=== PATIENT | female | born 1965 | race Caucasian/White ===

== ENCOUNTER → 2022-05-24 | Outpatient (CLI) | payer OTHER ==
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
== END | disposition home or self-care (01) ==
LOC: RADMRIMAIN 20:30
PROVIDERS: ATTEND Nurse Practitioner Family
DX: M25.512 Pain in left shoulder (principal); M75.42 Impingement syndrome of left shoulder; V89.2XXA Person injured in unspecified motor-vehicle accident, traffic, initial encounter

== ENCOUNTER → 2022-07-26 | Outpatient (CLI) | payer BC, OTHER ==
--- NOTE | 2022-07-26 14:33 | XR ---
EXAMINATION TYPE: XR elbow complete RT DATE OF EXAM: 07/26/2022 COMPARISON: NONE HISTORY: Pain FINDINGS: Three views of the elbow demonstrate no pathologic joint effusion. The osseous structures are intact . There is no acute fracture or dislocation. IMPRESSION: 1. No acute fracture or dislocation. If symptoms persist follow-up study in 7 to 10 days could be ob tained.
--- NOTE | 2022-07-26 14:34 | XR ---
EXAMINATION TYPE: XR knee 4V RT DATE OF EXAM: 07/26/2022 COMPARISON: NONE HISTORY: Pain TECHNIQUE: Three views are submitted. FINDINGS: Joint spaces are preserved. Osseous structures are intact. No acute fracture seen. Small amount of fluid in the suprapatellar bursa. IMPRESSION: 1. No acute fracture or dislocation. There is a small amount of fluid in the suprapatellar bursa. If concern for internal derangement of the knee correlate with MRI.
--- NOTE | 2022-07-26 14:37 | XR ---
EXAMINATION TYPE: XR wrist complete RT DATE OF EXAM: 07/26/2022 COMPARISON: NONE HISTORY: Pain TECHNIQUE: Four views submitted. FINDINGS: The osseous structures are intact. The joint spaces are preserved and there is no acute fracture or dislocation. IMPRESSION: 1. No definite acute fracture or dislocation if symptoms persist, follow-up study in 7 to 10 days wo uld be suggested
== END | disposition home or self-care (01) ==
LOC: RADXRMAIN 13:10
PROVIDERS: ATTEND Nurse Practitioner Family
DX: M25.531 Pain in right wrist (principal); M25.561 Pain in right knee; M25.521 Pain in right elbow; W19.XXXA Unspecified fall, initial encounter

== ENCOUNTER → 2022-08-07 | Outpatient (CLI) | payer OTHER ==
--- NOTE | 2022-08-07 14:49 | XR ---
EXAMINATION TYPE: XR elbow complete LT DATE OF EXAM: 08/07/2022 COMPARISON: NONE HISTORY: Pain FINDINGS: Three views of the elbow demonstrate no pathologic joint effusion. The osseous structures are intact . There is no acute fracture or dislocation. IMPRESSION: 1. No acute fracture or dislocation. If symptoms persist follow-up study in 7 to 10 days could be ob tained.
--- NOTE | 2022-08-07 14:51 | XR ---
EXAMINATION TYPE: XR hand complete LT DATE OF EXAM: 08/07/2022 COMPARISON: NONE HISTORY: Pain TECHNIQUE: Three views are submitted. FINDINGS: The osseous structures are intact. The joint spaces are preserved and there is no acute fracture or dislocation. IMPRESSION: 1. No definite acute fracture or dislocation if symptoms persist, follow-up study in 7 to 10 days wo uld be suggested
== END | disposition home or self-care (01) ==
LOC: RADXRMAIN 13:56
PROVIDERS: ATTEND Family Medicine
DX: M79.642 Pain in left hand (principal); M25.522 Pain in left elbow

== ENCOUNTER → 2022-08-17 | Outpatient (CLI) | payer OTHER ==
[2022-08-17 15:37] LABS: Basophils % (A) 1.6 %; Eosinophils # (A) 0.08 X 10*3/uL (0.04-0.35); Eosinophils % (A) 1.3 %; HCT 41.4 % (37.2-46.3); HGB 13.2 g/dL (12.0-15.0); Immature Grans, Automated 0.8 %; Lymphocytes # (A) 0.87 X 10*3/uL (0.90-5.00); Lymphocytes % (A) 13.6 %; MCH 29.4 pg (27.0-32.0); MCHC 31.9 g/dL (32.0-37.0); MCV 92.2 fL (80.0-97.0); Mean Platelet Volume 11.5 fL (9.5-12.2); Monocytes # (A) 0.58 X 10*3/uL (0.20-1.00); Monocytes % (A) 9.1 %; NRBC Per 100 WBC 0 /100 WBCS (0.0-0.0); Neutrophils % (A) 73.6 %; Platelet Count 318 X 10*3/uL (140-440); RBC 4.49 X 10*6/uL (4.10-5.20); RDW 12.6 % (11.5-14.5); WBC 6.38 X 10*3/uL (4.50-10.00)
[2022-08-17 16:12] LABS: ALT 38 U/L (8-44); AST 32 U/L (13-35); African American GFR (CKD) 111.5 (60.0-200.0); Albumin 4.3 g/dL (3.8-4.9); Albumin/Globulin Ratio 1.95 (1.60-3.17); Alkaline Phosphatase 111 U/L (41-126); BUN/Creat Ratio 13.71 Ratio (12.00-20.00); Blood Urea Nitrogen 9.6 mg/dL (9.0-27.0); Calcium 9.3 mg/dL (8.7-10.3); Carbon Dioxide 27.5 mmol/L (20.0-27.5); Chloride 100 mmol/L (96-109); Globulin 2.2 g/dL (1.6-3.3); Glucose 154 mg/dL (70-110); Non-African American GFR(CKD) 96.2 (60.0-200.0); Potassium 4.9 mmol/L (3.5-5.5); Sodium 138 mmol/L (135-145); Total Bilirubin <0.15 mg/dL (0.30-1.20); Total Protein 6.5 g/dL (6.2-8.2)
== END | disposition home or self-care (01) ==
LOC: LABWHC1 09:37
PROVIDERS: ATTEND Nurse Practitioner Acute Care
DX: F02.80 Dementia in other diseases classified elsewhere, unspecified severity, without behavioral disturbance, psychotic disturbance, mood disturbance, and anxiety (principal); G30.9 Alzheimer's disease, unspecified
CPT/HCPCS: 36415; 80053; 82306; 82607; 84207; 85025